=== PATIENT | male | born 1965 | race Caucasian/White ===

== ENCOUNTER 2016-10-07 10:22 | Emergency (ER) | payer MEDICAID, OTHER ==
[~2016-10-07] VITALS: Ht 160 cm; Wt 109.0 kg
[2016-10-07 10:26] VITALS: Ht 160 cm; Wt 109.0 kg
--- OUTSIDE RECORDS SUMMARY | 2016-10-07 10:29 | XMS REPORT ---
Author Author Surjit Martinez [facility] Address [address] [place] [address] Care Team Providers Care Flame Hardening Machine Setter Name Role Phone Surjit Martinez Unavailable [phone] PROBLEMS Type Condition ICD9-CM Code [id number] Code Onset Dates Condition Status SNOMED Code Assessment Obstructive sleep apnea (adult) (pediatric) G47.33 Sep, Active 51708772 Problem Hypermetropia 367.0 Active 98379002 Problem Presbyopia 367.4 Active 72581572 Assessment Cough R05 Sep, Active 18348228 Problem Obstructive sleep apnea (adult) (pediatric) G47.33 Active 47362420 Problem Type 2 diabetes mellitus with hyperglycemia E11.65 Active 333550439262616 Problem Diabetes with neurological manifestations, type II or unspecified type , not stated as uncontrolled 250.60 Active 743366086 Problem Rosacea 695.3 Active 021589966 Problem Other hyperlipidemia E78.4 Active 98791473 Problem Pain in joint, other specified sites 719.48 Active 67854473 ALLERGIES Substance Reaction Event Type Date Status N.K.D.A. Unknown Non Drug Allergy Sep, Unknown SOCIAL HISTORY No smoking Hx information available PLAN OF CARE VITAL SIGNS Height 66.5 in 2016-09-24 Weight 248.8 lbs 2016-09-24 BMI 39.55 kg/m2 2016-09-24 Heart Rate 100 /min 2016-09-24 Temperature 98.0 degrees Fahrenheit 2016-09-24 Blood pressure systolic 118 mm Hg 2016-09-24 Blood pressure diastolic 84 mm Hg 2016-09-24 MEDICATIONS Medication Instructions Dosage Frequency Start Date End Date Duration Status Cetirizine HCl 10 MG Orally Once a day 1 tablet as needed 24h Sep, Dec, 30 day(s) Active Atorvastatin Calcium 20 MG Orally Once a day 1 tablet 24h Jan, 90 days Active Ranitidine HCl 150 MG Orally Once a day 1 tablet 24h May, 90 days Active MetFORMIN HCl ER 500 MG Orally Once a day 4 tablets 24h Jun, 90 days Active Invokana 100 MG Orally Once a day 1 tablet 24h November, 90 days Active Flonase 50 MCG/ACT Nasally Once a day 1 spray in each nostril 24h Sep, 30 day(s) Active Gabapentin 300 MG Orally two times a day 2 capsule 12h Feb, 90 days Active GlipiZIDE 5 MG Orally Once a day 1 tablet 24h 14 Mar, 2016 90 days Active True Result Test Strips as directed Feb, dx: 250.00 Active Lancets Ultra Thin 30G 1 as directed Jan, 30 days Active RESULTS No Results PROCEDURES Procedure Date Ordered Related Diagnosis Body Site Office Visit, Est Pt., Level 3 September 24, 2016 IMMUNIZATIONS No Known Immunizations
--- OUTSIDE RECORDS SUMMARY | 2016-10-07 10:29 | XMS REPORT ---
Author Author Surjit Martinez [facility] eClinical[employer] Address Unknown Phone Unavailable Care Team Providers Care Departure Clerk Name Role Phone Surjit Martinez CP Unavailable Allergies, Adverse Reactions, Alerts Substance Reaction Event Type N.K.D.A. Info Not Available Non Drug Allergy Problems Problem Type Condition Code Onset Dates Condition Status Assessment Umbilical hernia without obstruction or gangrene K42.9 Active Assessment Type 2 diabetes mellitus with hyperglycemia E11.65 Active Assessment Other hyperlipidemia E78.4 Active Assessment Other acute sinusitis J01.80 Active Problem Pain in joint, other specified sites 719.48 Active Problem Diabetes with neurological manifestations, type II or unspecified type , not stated as uncontrolled 250.60 Active Problem Other hyperlipidemia E78.4 Active Problem Hypermetropia 367.0 Active Problem Presbyopia 367.4 Active Problem Diabetes mellitus without mention of complication, type II or unspecified type, uncontrolled 250.02 Active Problem Rosacea 695.3 Active Medications Medication Code System Code Instructions Start Date End Date Status Dosage Lisinopril [facility] [address]-39 5 MG Orally Once a day February 08, 2015 1 tablet Metformin HCl [facility] [address]-67 1000 MG Orally Twice a day, may increase to 2 tablets BID if tolerates well February 08, 2015 1 tablet with meals Flonase [facility] [address]-54 50 MCG/ACT Nasally Once a day Jun 05, 2015 1 spray in each nostril Januvia [facility] [address]-86 100 MG Orally Once a day Mar 24, 2015 1 tablet Atorvastatin Calcium [facility] [address]-60 20 MG Orally Once a day February 08, 2015 1 tablet Ranitidine HCl [facility] [address]-23 150 MG Orally Twice a day Jun 05, 2015 1 tablet Amoxicillin [facility] [address]-52 875 MG Orally Twice a day Jun 05, 2015 Jun 15, 2015 1 tablet Procedures Procedure Coding System Code Date ASSAY OF URINE CREATININE CPT-4 36578 Jun 05, 2015 MICROALBUMIN, QUANTITATIVE CPT-4 64388 Jun 05, 2015 GLYCATED HEMOGLOBIN TEST CPT-4 97459 Jun 05, 2015 ASSAY, BLD/SERUM CHOLESTEROL CPT-4 55101 Jun 05, 2015 ASSAY OF LIPOPROTEIN CPT-4 27273 Jun 05, 2015 Office Visit, Est Pt., Level 4 CPT-4 11141 Jun 05, 2015 ASSAY OF TRIGLYCERIDES CPT-4 06264 Jun 05, 2015 Vital Signs Date/Time: Jun 05, 2015 BMI 39.55 Index Weight 248.8 lbs Height 66.50 in Blood Pressure Diastolic 82 mm Hg Blood Pressure Systolic 111 mm Hg Temperature 98.2 F Cardiac Monitoring Heart Rate 104 /min Results No Known Results Summary Purpose eClinicalWorks Submission
--- OUTSIDE RECORDS SUMMARY | 2016-10-07 10:29 | XMS REPORT ---
Author Author Surjit Martinez Organization [employer] Address Unknown Phone Unavailable Care Team Providers Care Fleet Administrator Name Role Phone Surjit Martinez CP Unavailable Allergies No Known Allergies Problems Problem Type Condition Code Onset Dates Condition Status Problem Pain in joint, other specified sites [...] Start Date End Date Status Dosage Lisinopril [facility] [address]-12 5 MG Orally Once a day February 08, 2015 1 tablet Results No Known Results Summary Purpose eClinicalWorks Submission
--- OUTSIDE RECORDS SUMMARY | 2016-10-07 10:29 | XMS REPORT ---
Author Author Surjit Martinez [facility] eClinicalWorks Address Unknown Phone Unavailable Care Team Providers Care It Administrator Name Role Phone Surjit Martinez CP Unavailable Allergies, Adverse Reactions, Alerts Substance Reaction Event Type N.K.D.A. Info Not Available Non Drug Allergy Problems Problem Type Condition Code Onset Dates Condition Status Assessment Type 2 diabetes mellitus with hyperglycemia E11.65 Active Problem Pain in joint, other specified sites 719.48 Active Problem Diabetes with neurological manifestations, type II or unspecified type , not stated as uncontrolled 250.60 Active Problem Other hyperlipidemia E78.4 Active Problem Presbyopia 367.4 Active Assessment Other chest pain R07.89 Active Problem Rosacea 695.3 Active Problem Hypermetropia 367.0 Active Medications Medication Code System Code Instructions Start Date End Date Status Dosage Atorvastatin Calcium [facility] [address]-01 20 MG Orally Once a day February 08, 2015 1 tablet Voltaren [facility] 88540305459 1 % Transdermal 2 grams to affected area QID True Result Test Strips ND 0 as directed Feb 27, 2015 as directed Lisinopril [facility] [address]-74 5 MG Orally Once a day February 08, 2015 1 tablet Ranitidine HCl [facility] [address]-62 150 MG Orally Once a day Jun 05, 2015 1 tablet MetFORMIN HCl ER (OSM) [facility] [address]-02 1000 MG Orally Once a day December 11, 2015 2 tablets Invokana [facility] [address]-92 100 MG Orally Once a day December 07, 2015 Mar 06, 2016 1 tablet Lancets Ultra Thin 30G [facility] 223[address]892 1 Test TID February 06, 2015 as directed Gabapentin [facility] [address]-39 300 MG Orally two times a day Feb 22, 2015 2 capsule Procedures Procedure Coding System Code Date REAGENT STRIP/BLOOD GLUCOSE CPT-4 55714 February 08, 2016 Vital Signs Date/Time: February 08, 2016 BMI 39.04 Index Weight 245.6 lbs Height 66.5 in Blood Pressure Diastolic 65 mm Hg Blood Pressure Systolic 99 mm Hg Temperature 98.3 F Cardiac Monitoring Heart Rate 93 /min Results Name Result Date Reference Range Unit Abnormality Flag Glucose blood fingerstick (GM) ----Blood Sugar 141 [id number] Summary Purpose eClinicalWorks Submission
--- OUTSIDE RECORDS SUMMARY | 2016-10-07 10:29 | XMS REPORT ---
Author Author Surjit Martinez Organization [employer] Address Unknown Phone Unavailable Care Team Providers Care Outside Sales Representative Insurance Name Role Phone Surjit Martinez CP Unavailable Allergies No Known Allergies Problems Problem Type Condition ICD-9 Code Onset Dates Condition Status Problem Rosacea 695.3 Active Problem Hypermetropia 367.0 Active Problem Diabetes mellitus without mention of complication, type II or unspecified type, uncontrolled 250.02 Active Problem Presbyopia 367.4 Active Medications No Known Medications Results No Known Results Summary Purpose eClinicalWorks Submission
--- OUTSIDE RECORDS SUMMARY | 2016-10-07 10:29 | XMS REPORT ---
Author Author Surjit Martinez Organization [employer] Address Unknown Phone Unavailable Care Team Providers Care Oil Pit Attendant Name Role Phone Surjit Martinez CP Unavailable [...] Date End Date Status Dosage Atorvastatin Calcium [facility] [address]-37 20 MG Orally Once a day February 08, 2015 1 tablet Results No Known Results Summary Purpose eClinicalWorks Submission
--- OUTSIDE RECORDS SUMMARY | 2016-10-07 10:29 | XMS REPORT ---
Author Author Surjit Martinez Organization [employer] Address Unknown Phone Unavailable Care Team Providers Care Appliquer Name Role Phone Surjit Martinez CP Unavailable [...] 250.02 Active Problem Rosacea 695.3 Active Medications No Known Medications Results No Known Results Summary Purpose eClinicalWorks Submission
--- OUTSIDE RECORDS SUMMARY | 2016-10-07 10:29 | XMS REPORT ---
Author Author Surjit Martinez [facility] eClinical[employer] Address Unknown Phone Unavailable Care Team Providers Care Checkering Machine Operator Name Role Phone Surjit Martinez CP Unavailable [...] E78.4 Active Problem Presbyopia 367.4 Active Assessment Type 2 diabetes mellitus with hyperglycemia E11.65 Active Problem Rosacea 695.3 Active Problem Hypermetropia 367.0 Active Medications Medication Code System Code Instructions Start Date End Date Status Dosage Atorvastatin Calcium [facility] [address]-21 20 MG Orally Once a day February 08, 2015 1 tablet Lisinopril [facility] [address]-87 5 MG Orally Once a day February 08, 2015 1 tablet GlipiZIDE [facility] [address]-83 5 MG Orally Once a day September 20, 2015 1 tablet Flonase [facility] [address]-03 50 MCG/ACT Nasally Once a day Jun 05, 2015 1 spray in each nostril Metformin HCl [facility] [address]-94 1000 MG Orally Twice a day, may increase to 2 tablets BID if tolerates well February 08, 2015 1 tablet with meals Lancets Ultra Thin 30G [facility] [address]11 1 Test TID February 06, 2015 as directed True Result Test Strips ND 0 as directed Feb 27, 2015 as directed MetFORMIN HCl ER (MOD) [facility] [address]-85 1000 MG Orally Once a day October 2 tablet with evening meal Januvia [facility] [address]-24 100 MG Orally Once a day Mar 24, 2015 1 tablet Voltaren [facility] 15939102996 1 % Transdermal 2 grams to affected area QID Gabapentin [facility] [address]-94 300 MG Orally Three times a day Feb 22, 2015 1 capsule Ranitidine HCl [facility] [address]-77 150 MG Orally Twice a day Jun 05, 2015 1 tablet Procedures Procedure Coding System Code Date Office Visit, Est Pt., Level 3 CPT-4 48762 November 01, 2015 REAGENT STRIP/BLOOD GLUCOSE CPT-4 00583 November 01, 2015 Vital Signs Date/Time: November 01, 2015 BMI 40.63 Index Weight 255.6 lbs Height 66.5 in Blood Pressure Diastolic 84 mm Hg Blood Pressure Systolic 119 mm Hg Temperature 98.2 F Cardiac Monitoring Heart Rate 92 /min Results No Known Results Summary Purpose eClinicalWorks Submission
--- OUTSIDE RECORDS SUMMARY | 2016-10-07 10:29 | XMS REPORT ---
Author Author Stella Ghosh Organization [employer] Address Unknown Phone Unavailable Care Team Providers Care Courtroom Deputy Name Role Phone Stella Ghosh CP Unavailable Allergies No Known Allergies Problems Problem Type Condition Code Onset Dates Condition Status Problem Pain in joint, other specified sites 719.48 Active Problem Diabetes with neurological manifestations, type II or unspecified type , not stated as uncontrolled 250.60 Active Problem Other hyperlipidemia E78.4 Active Problem Presbyopia 367.4 Active Problem Rosacea 695.3 Active Problem Hypermetropia 367.0 Active Medications No Known Medications Results No Known Results Summary Purpose eClinicalWorks Submission
--- OUTSIDE RECORDS SUMMARY | 2016-10-07 10:29 | XMS REPORT ---
Author Author Surjit Martinez [facility] eClinical[employer] Address Unknown Phone Unavailable Care Team Providers Care Composite Engineer Name Role Phone Surjit Martinez Unavailable Allergies, Adverse Reactions, Alerts Substance Reaction Event Type N.K.D.A. Info Not Available Non Drug Allergy Problems Problem Type Condition Code Onset Dates Condition Status Assessment Type 2 diabetes mellitus with hyperglycemia E11.65 Active Assessment Pure hypercholesterolemia, unspecified E78.00 Active Problem Other hyperlipidemia E78.4 Active Problem Pain in joint, other specified sites 719.48 Active Problem Type 2 diabetes mellitus with hyperglycemia E11.65 Active Problem Hypermetropia 367.0 Active Problem Presbyopia 367.4 Active Problem Diabetes with neurological manifestations, type II or unspecified type , not stated as uncontrolled 250.60 Active Problem Rosacea 695.3 Active Medications Medication Code System Code Instructions Start Date End Date Status Dosage MetFORMIN HCl ER (OSM) [facility] [address]-85 1000 MG Orally Once a day December 11, 2015 2 tablets Gabapentin [facility] [address]-65 300 MG Orally two times a day Feb 22, 2015 2 capsule Invokana [facility] 35712141404 100 MG Orally Once a day November 24, 2016 1 tablet GlipiZIDE [facility] [address]-62 5 MG Orally Once a day Apr 03, 2016 1 tablet Atorvastatin Calcium [facility] [address]-87 20 MG Orally Once a day February 08, 2015 1 tablet True Result Test Strips ND 0 as directed Feb 27, 2015 as directed Lancets Ultra Thin 30G [facility] [address]97 1 Test TID February 06, 2015 as directed Ranitidine HCl [facility] [address]-36 150 MG Orally Once a day Jun 05, 2015 1 tablet Procedures Procedure Coding System Code Date Office Visit, Est Pt., Level 3 CPT-4 86407 May 28, 2016 REAGENT STRIP/BLOOD GLUCOSE CPT-4 23141 May 28, 2016 Vital Signs Date/Time: May 28, 2016 BMI 38.88 Index Weight 244.6 lbs Height 66.5 in Blood Pressure Diastolic 88 mm Hg Blood Pressure Systolic 125 mm Hg Temperature 97.8 F Cardiac Monitoring Heart Rate 93 /min Results Name Result Date Reference Range Unit Abnormality Flag Glucose blood fingerstick (GM) ----Blood Sugar 145 [id number] Summary Purpose eClinicalWorks Submission
--- OUTSIDE RECORDS SUMMARY | 2016-10-07 10:30 | XMS REPORT ---
Author Author Surjit Martinez Organization [employer] Address Unknown Phone Unavailable Care Team Providers Care Office Coordinator Name Role Phone Surjit Martinez CP Unavailable [...]
--- OUTSIDE RECORDS SUMMARY | 2016-10-07 10:30 | XMS REPORT ---
Author Author Surjit Martinez Organization [employer] Address Unknown Phone Unavailable Care Team Providers Care Director Of Neurology Name Role Phone Surjit Martinez CP Unavailable Allergies No Known Allergies Problems Problem Type Condition ICD-9 Code Onset Dates Condition Status Problem Diabetes mellitus without mention of complication, type II or unspecified type, uncontrolled 250.02 Active Problem Rosacea 695.3 Active Problem Diabetes with neurological manifestations, type II or unspecified type , not stated as uncontrolled 250.60 Active Problem Hypermetropia 367.0 Active Problem Presbyopia 367.4 Active Medications Medication Code System Code Instructions Start Date End Date Status Dosage True Result Test Strips NDC 0 as directed Feb 27, 2015 as directed True Result Glucometer NDC 0 . . test three times a day Feb 27, 2015 Feb 28, 2015 . Results No Known Results Summary Purpose eClinicalWorks Submission
--- OUTSIDE RECORDS SUMMARY | 2016-10-07 10:30 | XMS REPORT ---
Author Author Surjit Martinez Organization [employer] Address Unknown Phone Unavailable Care Team Providers Care Production Material Handler Name Role Phone Surjit Martinez CP Unavailable [...]
--- OUTSIDE RECORDS SUMMARY | 2016-10-07 10:30 | XMS REPORT ---
Author Author Surjit Martinez Organization [employer] Address Unknown Phone Unavailable Care Team Providers Care Supervisor Cold Rolling Name Role Phone Surjit Martinez CP Unavailable Allergies No Known Allergies Problems Problem Type Condition Code Onset Dates Condition Status Problem Other hyperlipidemia E78.4 Active Problem Pain in joint, other specified sites 719.48 Active Problem Type 2 diabetes mellitus with hyperglycemia E11.65 Active Problem Hypermetropia 367.0 Active Problem Presbyopia 367.4 Active Problem Diabetes with neurological manifestations, type II or unspecified type , not stated as uncontrolled 250.60 Active Problem Rosacea 695.3 Active Medications No Known Medications Results No Known Results Summary Purpose eClinicalWorks Submission
--- OUTSIDE RECORDS SUMMARY | 2016-10-07 10:30 | XMS REPORT ---
Author Author Surjit Martinez [facility] eClinicalWorks Address Unknown Phone Unavailable Care Team Providers Care Award Clerk Name Role Phone Surjit Martinez CP Unavailable Allergies, Adverse Reactions, Alerts Substance Reaction Event Type N.K.D.A. Info Not Available Non Drug Allergy Problems Problem Type Condition ICD-9 Code Onset Dates Condition Status Assessment Pain in joint, other specified sites 719.48 Active Assessment Chest pain, unspecified 786.50 Active Problem Rosacea 695.3 Active Problem Hypermetropia 367.0 Active Problem Diabetes mellitus without mention of complication, type II or unspecified type, uncontrolled 250.02 Active Assessment Umbilical hernia without mention of obstruction or gangrene 553.1 Active Assessment Swelling of limb 729.81 Active Problem Presbyopia 367.4 Active Assessment Diabetes mellitus without mention of complication, type II or unspecified type, uncontrolled 250.02 Active Medications No Known Medications Procedures Procedure Coding System Code Date COMPREHEN METABOLIC PANEL CPT-4 08734 February 06, 2015 ASSAY OF LIPOPROTEIN CPT-4 36871 February 06, 2015 REAGENT STRIP/BLOOD GLUCOSE CPT-4 43282 February 06, 2015 Office Visit, New Pt., Level 4 CPT-4 90219 February 06, 2015 GLYCATED HEMOGLOBIN TEST CPT-4 81589 February 06, 2015 ASSAY OF TRIGLYCERIDES CPT-4 03067 February 06, 2015 ASSAY, BLD/SERUM CHOLESTEROL CPT-4 19874 February 06, 2015 MICROALBUMIN, QUANTITATIVE CPT-4 02982 February 06, 2015 ASSAY OF URINE CREATININE CPT-4 98968 February 06, 2015 Vital Signs Date/Time: February 06, 2015 BMI 39.11 Index Weight 246.0 lbs Height 66.50 in Blood Pressure Diastolic 85 mm Hg Blood Pressure Systolic 122 mm Hg Temperature 97.5 F Cardiac Monitoring Heart Rate 104 /min Results Name Result Date Reference Range Unit Abnormality Flag Glucose blood fingerstick (GM) COMPREHENSIVE METABOLIC PANEL Summary Purpose eClinicalWorks Submission
--- OUTSIDE RECORDS SUMMARY | 2016-10-07 10:30 | XMS REPORT ---
Author Author Surjit Martinez Organization [employer] Address Unknown Phone Unavailable Care Team Providers Care Railway Signal Electrician Name Role Phone Surjit Martinez CP Unavailable [...] Instructions Start Date End Date Status Dosage GlipiZIDE [facility] [address]-95 5 MG Orally Once a day Apr 03, 2016 1 tablet Results No Known Results Summary Purpose eClinicalWorks Submission
--- OUTSIDE RECORDS SUMMARY | 2016-10-07 10:30 | XMS REPORT ---
Author Author Surjit Martinez Organization [employer] Address Unknown Phone Unavailable Care Team Providers Care Associate Biological Sales Name Role Phone Surjit Martinez CP Unavailable Allergies No Known Allergies Problems Problem Type Condition ICD-9 Code Onset Dates Condition Status Problem Diabetes with neurological manifestations, type II or unspecified type , not stated as uncontrolled 250.60 Active Problem Diabetes mellitus without mention of complication, type II or unspecified type, uncontrolled 250.02 Active Problem Pain in joint, other specified sites 719.48 Active Problem Presbyopia 367.4 Active Problem Rosacea 695.3 Active Problem Hypermetropia 367.0 Active Medications Medication Code System Code Instructions Start Date End Date Status Dosage Voltaren [facility] [address]-21 1 % Transdermal Mar 24, 2015 May 23, 2015 2 grams to affected area QID Results No Known Results Summary Purpose eClinicalWorks Submission
--- OUTSIDE RECORDS SUMMARY | 2016-10-07 10:30 | XMS REPORT ---
Author Author Surjit Martinez Organization [employer] Address Unknown Phone Unavailable Care Team Providers Care Metal Miner Name Role Phone Surjit Martinez CP Unavailable Allergies No Known Allergies Problems Problem Type Condition ICD-9 Code Onset Dates Condition Status Problem Rosacea 695.3 Active Problem Hypermetropia 367.0 Active Problem Diabetes mellitus without mention of complication, type II or unspecified type, uncontrolled 250.02 Active Problem Presbyopia 367.4 Active Medications Medication Code System Code Instructions Start Date End Date Status Dosage Lisinopril [facility] [address]-86 5 MG Orally Once a day February 08, 2015 1 tablet Atorvastatin Calcium [facility] [address]-21 20 MG Orally Once a day February 08, 2015 1 tablet Metformin HCl [facility] [address]-56 500 MG Orally Twice a day, may increase to 2 tablets BID if tolerates well February 08, 2015 1 tablet with meals Results No Known Results Summary Purpose eClinicalWorks Submission
--- OUTSIDE RECORDS SUMMARY | 2016-10-07 10:30 | XMS REPORT ---
Author Author Surjit Martinez Organization [employer] Address Unknown Phone Unavailable Care Team Providers Care Ditching Machine Operator Name Role Phone Surjit Martinez [...] , not stated as uncontrolled 250.60 Active Assessment Diabetes with neurological manifestations, type II or unspecified type, not stated as uncontrolled 250.60 Active Assessment Pain in joint, other specified sites 719.48 Active Problem Hypermetropia 367.0 Active Problem Presbyopia 367.4 Active Medications Medication Code System Code Instructions Start Date End Date Status Dosage Atorvastatin Calcium [facility] [address]-88 20 MG Orally Once a day February 08, 2015 1 tablet Gabapentin [facility] [address]-57 300 MG Orally Three times a day Feb 22, 2015 1 capsule Metformin HCl [facility] [address]-06 1000 MG Orally Twice a day, may increase to 2 tablets BID if tolerates well February 08, 2015 1 tablet with meals Lisinopril [facility] [address]-04 5 MG Orally Once a day February 08, 2015 1 tablet Procedures Procedure Coding System Code Date RBC SED RATE, AUTOMATED CPT-4 75833 Feb 22, 2015 Office Visit, Est Pt., Level 3 CPT-4 76379 Feb 22, 2015 ASSAY OF BLOOD/URIC ACID CPT-4 51467 Feb 22, 2015 Vital Signs Date/Time: Feb 22, 2015 BMI 38.92 Index Weight 244.8 lbs Height 66.50 in Blood Pressure Diastolic 79 mm Hg Blood Pressure Systolic 113 mm Hg Temperature 98.5 F Cardiac Monitoring Heart Rate 80 /min Results No Known Results Summary Purpose eClinicalWorks Submission
--- OUTSIDE RECORDS SUMMARY | 2016-10-07 10:30 | XMS REPORT ---
Author Author Surjit Martinez [facility] eClinicalWorks Address Unknown Phone Unavailable Care Team Providers Care Parachute Crown Sewer Name Role Phone Surjit Martinez CP Unavailable [...] sites 719.48 Active Problem Presbyopia 367.4 Active Assessment Diabetes mellitus without mention of complication, type II or unspecified type, uncontrolled 250.02 Active Problem Rosacea 695.3 Active Problem Hypermetropia 367.0 Active Medications Medication Code System Code Instructions Start Date End Date Status Dosage Voltaren [facility] [address]-86 1 % Transdermal Mar 24, 2015 May 23, 2015 2 grams to affected area QID Atorvastatin Calcium [facility] [address]-76 20 MG Orally Once a day February 08, 2015 1 tablet Metformin HCl [facility] [address]-48 1000 MG Orally Twice a day, may increase to 2 tablets BID if tolerates well February 08, 2015 1 tablet with meals Lisinopril [facility] [address]-24 5 MG Orally Once a day February 08, 2015 1 tablet True Result Test Strips ND 0 as directed Feb 27, 2015 as directed Lancets Ultra Thin 30G [facility] [address]7787-[address]36 1 Test TID February 06, 2015 as directed Gabapentin [facility] [address]-64 300 MG Orally Three times a day Feb 22, 2015 1 capsule Januvia [facility] [address]-54 100 MG Orally Once a day Mar 24, 2015 1 tablet Procedures Procedure Coding System Code Date Office Visit, Est Pt., Level 3 CPT-4 77343 Mar 24, 2015 Vital Signs Date/Time: Mar 24, 2015 BMI 38.82 Index Weight 244.2 lbs Height 66.50 in Blood Pressure Diastolic 83 mm Hg Blood Pressure Systolic 123 mm Hg Temperature 98.2 F Cardiac Monitoring Heart Rate 85 /min Results No Known Results Summary Purpose eClinicalWorks Submission
--- OUTSIDE RECORDS SUMMARY | 2016-10-07 10:30 | XMS REPORT ---
Author Author Surjit Martinez Organization e[employer] Address Unknown Phone Unavailable Care Team Providers Care String Top Sealer Name Role Phone Surjit Martinez CP Unavailable [...] 367.0 Active Problem Presbyopia 367.4 Active Medications No Known Medications Results No Known Results Summary Purpose eClinicalWorks Submission
--- OUTSIDE RECORDS SUMMARY | 2016-10-07 10:30 | XMS REPORT ---
Author Author Surjit Martinez [facility] Address [address] [place] [address] Care Team Providers Care Health Information Director Name Role Phone Surjit Martinez Unavailable [phone] PROBLEMS Type Condition ICD9-CM Code TUR05-UN Code Onset Dates Condition Status SNOMED Code Problem Presbyopia 367.4 Active 90080278 Problem Type 2 diabetes mellitus with hyperglycemia E11.65 Active 273511712631645 Problem Other hyperlipidemia E78.4 Active 65794530 Problem Rosacea 695.3 Active 042428643 Problem Hypermetropia 367.0 Active 74139749 Problem Pain in joint, other specified sites 719.48 Active 75460348 Problem Diabetes with neurological manifestations, type II or unspecified type , not stated as uncontrolled 250.60 Active 445033520 ALLERGIES Unknown Allergies SOCIAL HISTORY No smoking Hx information available PLAN OF CARE VITAL SIGNS MEDICATIONS Medication Instructions Dosage Frequency Start Date End Date Duration Status MetFORMIN HCl ER 500 MG Orally Once a day 4 tablets 24h Jun, 90 days Active RESULTS No Results PROCEDURES No Known procedures IMMUNIZATIONS No Known Immunizations
--- OUTSIDE RECORDS SUMMARY | 2016-10-07 10:30 | XMS REPORT ---
Author Author Surjit Martinez Organization [employer] Address Unknown Phone Unavailable Care Team Providers Care Clinical Faculty Name Role Phone Surjit Martinez CP Unavailable [...] Instructions Start Date End Date Status Dosage Gabapentin [facility] [address]-77 300 MG Orally two times a day Feb 22, 2015 2 capsule Results No Known Results Summary Purpose eClinicalWorks Submission
--- OUTSIDE RECORDS SUMMARY | 2016-10-07 10:30 | XMS REPORT ---
Author Author Surjit Martinez Organization e[employer] Address Unknown Phone Unavailable Care Team Providers Care Double End Sewer Name Role Phone Surjit Martinez CP [...] Instructions Start Date End Date Status Dosage Metformin HCl [facility] [address]-09 1000 MG Orally Twice a day, may increase to 2 tablets BID if tolerates well February 08, 2015 1 tablet with meals Results No Known Results Summary Purpose eClinicalWorks Submission
--- NOTE | 2016-10-07 10:39 | ERPDOC ---
Departure Disposition Decision Date: Oct 07, 2016 Disposition Decision Time: 11:18 Disposition: 01 DISCHARGED HOME, SELF-CARE Impression Impression Impression: Primary Impression: Viral infection Additional Impression: Cough Severity: Mild Condition: Improved Seen By: Physician only Referrals: Your Doctor 1-2 days Patient Instructions: Acute Cough (ED) Problems/Meds/Labs Reviewed?: Yes Medications reviewed and manag: Yes Additional Instructions: 1. Rest 2. Maintain Hydration 3. Motrin or Tylenol for pain or Fever 4. Follow with your Doctor in 1-2 days 5. Return to the ER as needed Follow up care ordered?: Yes Mental Status: Alert, Oriented Scripts Benzonatate (Tessalon Perle) 100 Mg Capsule 100 MG PO Q8H for COUGH, #20 CAP 0 Refills Prov: NEFTALIJEFFERY 10/07/16 HPI - Cough/URI General Chief Complaint: Cough,Fever,Flu,URI Stated Complaint: COLD Time Seen by Provider: 10:31 Source: patient (Patient presents to the ER with a 3 day complaint of cough and cold symptoms. ) Exam Limitations: no limitations HPI - Cough/URI Occurred At: home Onset/Timing: Changing over time Duration: other (2-3 days) Pain/Severity Scale: Now & Worst: 0/10 Prior Episodes/Possible Cause: occasional episodes Modifying Factors: IMPROVES WITH: rest, WORSE WITH: coughing Associated Symptoms: cough, other, DENIES: chest pain/soreness, dizziness, earache, facial pain, fever/chills, headache, lightheadedness, muscle aches, nasal congestion, nasal drainage, shortness of breath, sinus infection, sore throat, wheezing Hx of Similar Symptoms: Yes Allergies: Coded Allergies: No Known Allergies (Unverified , 01/13/11) Past History Past Medical History Metabolic: diabetes, hypertension Hx Echocardiogram: No Surgical History Joint: other Family History Family PMH: FOUND: [place] Social History Smoking Status: Unknown if ever smoked Does patient use chewing tobac: Yes # of Packs/Tins per Day: 1 Second Hand Exposure: No Substance Use Type: does not use Alcohol Intake: none Housing: house Advance Directives: Yes Full Code Record Review Pertinent history updated: Yes Review of Systems Constitutional Constitutional: fever (Reports Tactile) Eyes Lids/Accessories: DENIES: erythema, swelling ENMT Ears: DENIES: erythema, pain Balance: DENIES: ataxia, vertigo Sinuses: DENIES: congestion, rhinorrhea Mouth/Throat: DENIES: sore throat Cardiovascular Cardiac: DENIES: chest pain, dyspnea on exertion, orthopnea Rhythm/Rate: DENIES: tachycardia Pulmonary Respiratory: cough, DENIES: dyspnea, sputum GI Upper Abdomen: DENIES: nausea, pain, vomiting Lower Abdomen: DENIES: constipation, diarrhea, pain General: DENIES: dysuria Musculoskeletal General: DENIES: cramps, pain, weakness Integumentary Skin: DENIES: color change, itching, rash Neurological General: DENIES: ataxia, change in strength, headache, numbness, poor coordination, seizures, syncope, vertigo, weakness Psychiatric Psychiatric: DENIES: anxiety, depression, nervousness Hematologic/Lymphatic Hematologic/Lymphatic: DENIES: anemia Allergic/Immunological Allergic/Immunoligical: DENIES: sneezing All other Systems All Other Systems: Reviewed and Negative Physical Exam General General Nourishment: well nourished, well developed, appears stated age, adult , obese General Body Habitus: well groomed Vitals and Pain First Documented Vital Signs Date Time Temp Pulse Resp B/P Pulse Ox O2 Delivery O2 Flow Rate FiO2 10/07/16 10:26 98.9 99 18 148/79 93 Room Air Weight: Kilograms: Height (feet): Height (inches): Triage Pain Scale: RN VS reviewed by Provider: Yes Eyes (brief) Eyes Brief: found: EOMI, PERRL ENMT (brief) ENMT Brief: FOUND: TM clear, TM good light reflex, mucosa moist, NOT FOUND: pharnyx erythema Neck (brief) Neck: FOUND: trachea midline, NOT FOUND: adenopathy, nuchal rigidity, tenderness, tracheal deviation Respiratory (brief) Respiratory: FOUND: clear all frederick, equal bilaterally Cardiovascular (brief) Cardiac: FOUND: regular rate, regular rhythm Capillary Refill: <2 sec Pulses: all distal extremities, equal, strong Abdomen (brief) Abdominal Brief: FOUND: bowel normo active x4, soft, NOT FOUND: distended, tender Lymphatic (brief) Lymphatic Brief: NOT FOUND: adenopathy Musculoskeletal (brief) Musculoskeletal Brief: NOT FOUND: spasm, tenderness Integumentary (brief) Integumentary Brief: FOUND: pink, warm Neurologic (brief) Neurological Brief: FOUND: CN w/o gross def to obs, gait w/o gross def to obs, motor-no gross deficits, sensory-no gross deficits, NOT FOUND: ataxia Psychiatric (brief) Psychiatric Brief: FOUND: alert, attentive, normal affect, oriented Differential Diagnoses Differential Diagnoses Considering: Acute Bronchitis, COPD Exacerbation, Influenza, Pneumonia, URI, Viral Syndrome, Other Progress Results/Orders Orders Procedure Category Date Status Time Influenza A/B Screen LAB 10/07/16 Complete 10:31 Chest, Pa & Lateral RAD 10/07/16 Resulted Lab Results Laboratory Tests Test 10/07/16 10:37 Influenza Type A Antigen Negative Influenza Type B Antigen Negative Xray Xray : Reason for Exam: Cough Xray: CXR PA/Lat Interpretation: Normal, Interpreted by Me, Reviewed Written Report KEVIN LINDSAY DO Oct 07, 2016 10:39
--- NOTE | 2016-10-07 10:44 | NUR ---
XRAY TO XRAY VIA WHEELCHAIR
[2016-10-07] MEDS ORDERED: GABA-338 PO (10:53)
[2016-10-07] MEDS ORDERED: GLIP5TAB11 PO (10:53)
[2016-10-07] MEDS ORDERED: CANA100T PO (10:53)
[2016-10-07] MEDS ORDERED: CYCL-375 PO (10:53)
[2016-10-07] MEDS ORDERED: FLUT15.88 EA NOSTRIL (10:53)
[2016-10-07] MEDS ORDERED: METF-462 PO (10:53)
[2016-10-07] MEDS ORDERED: CETI-269 PO (10:53)
[2016-10-07] MEDS ORDERED: OXYC1TAB11 PO (10:53)
[2016-10-07] MEDS ORDERED: ATOR20TA59 PO (10:53)
[2016-10-07] MEDS ORDERED: RANI150C4 PO (10:53)
[2016-10-07] MEDS ORDERED: MELO-273 PO (10:53)
--- NOTE | 2016-10-07 11:05 | DI ---
INDICATION: ITS.REASON: cough PROCEDURE: CHEST 2-VIEWS UPRIGHT (PA \T\ LAT) Encounter: Initial Comparison: March 28, 2011 Findings: The lungs are stable in appearance without new focal airspace consolidation. Small area of probable scarring in the left base. There is no pleural effusion or pneumothorax. The heart size, pulmonary vascularity and mediastinal contours are unchanged. IMPRESSION: Stable appearance of the chest without acute cardiopulmonary disease. .
[2016-10-07 11:15] LABS: INFLUENZA A AG SCREEN NEGATIVE (NEGATIVE); INFLUENZA B AG SCREEN NEGATIVE (NEGATIVE)
[2016-10-07] MEDS ORDERED: BENZ100C97 PO (11:21)
[2016-10-07 11:26] VITALS: BP 148/79; PULSE 99; RESP 18; TEMP 98.9; O2SAT 93
--- NOTE | 2016-10-07 11:26 | NUR ---
DEPART VERBAL AND WRITTEN DISCHARGE INSTRUCTIONS GIVEN AND UNDERSTOOD. PATIENT LEFT AMBULATORY FROM ER. SCRIPT
== END 2016-10-07 11:26 | disposition home or self-care (01) ==
LOC: ED 10:22
DX: B34.9 Viral infection, unspecified (principal)
CPT/HCPCS: 87400